=== PATIENT | male | born 1950 | race Caucasian/White ===

== ENCOUNTER → 2017-07-30 | Outpatient (CLI) | payer MEDICARE ==
[~2017-07-30] MED LIST: LIDOCAINE 1%, 20ML ONE; OMNIPAQUE 300 MG/ML, 10ML VIAL ONE; ROPivacaine/PF 0.2%, 10 ML ONE; TRIAMCINOLONE ACETONIDE 40 MG/ML, 1ML ONE
== END | disposition home or self-care (01) ==
LOC: RAD 10:48
PROVIDERS: ATTEND Nurse Practitioner
DX: M67.472 Ganglion, left ankle and foot (principal); M19.072 Primary osteoarthritis, left ankle and foot
CPT/HCPCS: 20605; 73718; 77002; J2795; J3301; J3490; Q9967